=== PATIENT | male | born 1960 | race Caucasian/White ===

== ENCOUNTER 2022-11-25 07:48 | Emergency (ER) | payer MEDICARE, OTHER ==
[~2022-11-25] VITALS: Ht 175 cm; Wt 73.5 kg
[2022-11-25 07:48] VITALS: BP 148/88
--- NOTE | 2022-11-25 08:05 | ED Back Pain ---
General Chief Complaint: Back Problems Stated Complaint: BACK PAIN Nursing Triage Note: Pt presents to ER, via EMS, with complaints of back pain. Pt reports hx of chronic back pain and reports that he has been out of his oxycodone for approximately one month. Denies any new trauma/injury. Denies complaints of loss of bowel/bladder control and denies numbness/tingling to genital region. Source of Information: Patient Exam Limitations: No Limitations History of Present Illness Date Seen by Provider: Nov 25, 2022 Time Seen by Provider: 07:52 Initial Comments 62-year-old male with past medical history of chronic back pain, cyclical vomiting, and he states a few "psychiatric issues" that he currently is not needing medicines for coming in due to back pain from EMS. States the pain has been going on for years, has had numerous MRIs, and his primary care provider is in [place], [place]. He states he is staying in a camper, has been trying to move down here. He [place] to call his [place]- to [place] regular doctor. He ran out of oxycodone quite a while ago. The pain is mostly in his mid back, worse with movement, better with rest. Denies any weakness or numbness associated with it. Denies any new trauma associated with it. Otherwise denying any other acute complaints. Of note, he states that he was supposed to be on Latuda and that his primary care provider told him to "please start taking it again. He filled the prescription, took 1 pill, threw the rest out. Allergies and Home Medications Allergies Coded Allergies: No Known Drug Allergies (Unverified , 11/25/22) Patient Home Medication List Home Medication List Reviewed: Yes Review of Systems Constitutional: No fever EENTM: no symptoms reported Respiratory: no symptoms reported Cardiovascular: no symptoms reported Gastrointestinal: no symptoms reported Genitourinary: no symptoms reported Musculoskeletal: see HPI Skin: no symptoms reported Psychiatric/Neurological: No Symptoms Reported All Other Systems Reviewed Negative Unless Noted: Yes Past Wgoeflz-Fruyfu-Typowx Hx Patient Social History Tobacco Use?: No Use of E-Cig and/or Vaping dev: No Substance use?: Yes Substance type: Marijuana Alcohol Use?: Yes Pt feels they are or have been: No Immunizations Up To Date Influenza Vaccine Up-to-Date: No; Not Current Past Medical History Surgery/Hospitalization HX: Chronic Back Pain, thyroid disease, cyclic vomiting syndrome, Asthma Physical Exam Vital Signs Vital Signs - First Documented 11/25/22 07:48 Temp 36.8 Pulse 88 Resp 16 B/P (MAP) 148/88 (108) Pulse Ox 94 O2 Delivery Room Air Capillary Refill : Less Than 3 Seconds Height, Weight, BMI Height: '" Weight: lbs. oz. kg; 24.00 BMI Method: General Appearance: No Apparent Distress, WD/WN HEENT: PERRL/EOMI, Normal ENT Inspection, Pharynx Normal Neck: Full Range of Motion, Normal Inspection, Non Tender, Supple Cardiovascular: Regular Rate, Rhythm, No Edema, Normal Peripheral Pulses Respiratory: Chest Non Tender, Lungs Clear, Normal Breath Sounds, No Accessory Muscle Use, No Respiratory Distress Gastrointestinal: Normal Bowel Sounds, Non Tender, Soft; No Distended, No Guarding Back: Normal Inspection, No CVA Tenderness, No Vertebral Tenderness Extremity: Normal Capillary Refill, Normal Inspection, Normal Range of Motion, Non Tender, No Calf Tenderness, No Pedal Edema Neurologic/Psychiatric: Alert, Oriented x3, No Motor/Sensory Deficits, Normal Mood/Affect Skin: Normal Color, Warm/Dry Progress/Results/Core Measures Results/Orders My Orders Orders - HUYEN LOPEZ MD Droperidol Injection (Ed Only) (Droperid (11/25/22 08:15) Ketorolac Injection (Ketorolac Injection (11/25/22 08:15) Pelvis With Left Hip 2-3 View (11/25/22 08:08) Thoracic Spine 2 View Only (11/25/22 08:08) Tramadol Tablet (Ultram Tablet) (11/25/22 09:15) Medications Given in ED Current Medications Medications Dose Ordered Sig/Wilfredo Route Start Time Stop Time Status Last Admin Dose Admin Droperidol 1.25 mg ONCE ONCE IV 11/25/22 08:15 11/25/22 08:16 DC 11/25/22 08:11 1.25 MG Ketorolac Tromethamine 15 mg ONCE ONCE IVP 11/25/22 08:15 11/25/22 08:16 DC 11/25/22 08:11 15 MG Vital Signs/I&O 11/25/22 11/25/22 11/25/22 07:48 08:09 08:33 Temp 36.8 Pulse 88 81 82 Resp 16 18 16 B/P (MAP) 148/88 (108) 145/84 (104) 155/94 (114) Pulse Ox 94 97 98 O2 Delivery Room Air Room Air Room Air Blood Pressure Mean: 108 Progress Progress Note : Progress Note 62-year-old male with above history coming in due to back pain that is chronic. ABCs were intact and vitals were stable on presentation. Physical exam with no significant tenderness anywhere, and he is neurovascularly intact, ambulating without difficulty. X-ray of the pelvis and left hip as well as thoracic spine ordered and interpreted by me showing no fracture or dislocation. He is urinati ng without difficulty as well. He has no red flags otherwise. Given Toradol and tramadol for pain control. He has cyclical vomiting, was given a dose of droperidol to help prevent that from occurring, he states that occurs when he is in severe pain. I believe he is stable for discharge with outpatient follow-up. He was sent home with strict return precautions. Diagnostic Imaging Diagonstic Imaging: Xray (pelvis, left hip, thoracic spine) Comments [facility] [place], [place] NAME: TRAM GONZALEZ [facility] REC#: [id number] PT STATUS: REG ER : 1960 PHYSICIAN: HUYEN LOPEZ MD ADMIT DATE: 11/25/22/ER FS Signed Date of Exam:11/25/22 PELVIS WITH LEFT HIP 2-3 VIEW EXAMINATION: Left hip radiograph TECHNIQUE: AP view of the pelvis and AP and crosstable view of the left hip obtained. HISTORY: left hip pain COMPARISON: None available. FINDINGS: Alignment is normal. No fracture is seen. Joint spaces are normal. IMPRESSION: 1. No fracture. Dictated by: Dictated on workstation # [id number] Dict: 11/25/22830 Trans: 11/25/22833 [facility] [id number] Interpreted by: DANNY JASMINE DO Electronically signed by: DANNY JASMINE DO 11/25/22833 [facility] [place], [place] NAME: L[facility] REC#: [id number] PT STATUS: REG ER : 1960 PHYSICIAN: HUYEN LOPEZ MD ADMIT DATE: 11/25/22/ER FS Signed Date of Exam:11/25/22 THORACIC SPINE 2 VIEW ONLY EXAMINATION: Thoracic spine radiograph TECHNIQUE: AP and lateral views of the thoracic spine HISTORY: mid thoracic pain COMPARISON: None available. FINDINGS: Exaggerated kyphosis of the thoracic spine. No fracture is seen. Disc spaces are normal. Visualized lung jenkins are normal IMPRESSION: No apparent acute compression fracture. If there is persistent clinical concern MRI can be obtained. Dictated by: Dictated on workstation # [id number] Dict: 11/25/2234 Trans: 11/25/22835 [facility] [place] [id number] Interpreted by: DANNY JASMINE DO Electronically signed by: DANNY JASMINE DO 11/25/22835 Departure Impression Primary Impression: Back pain Qualified Codes: M54.6 - Pain in thoracic spine; G89.29 - Other chronic pain Disposition: HOME, SELF-CARE Condition: Stable Departure-Patient Inst. Decision time for Depature: 09:10 Patient Instructions: Upper Back Pain, Low Back Pain (DC) Add. Discharge Instructions: We do not see any significant damage on the x-rays. This is likely related to the same issues you have had in the past, unfortunately they do not appear to at least physically have gotten worse. We do recommend following back up with your regular doctor, and potentially getting a referral to a computer technical specialist if pain is not improving. We also recommend doing physical therapy for the back issues. Scripts Ibuprofen (Ibuprofen) 600 Mg Tablet 600 MG PO Q6H PRN for PAIN-MILD for 7 Days, #28 TAB Prov: HUYEN LOPEZ MD 11/25/22 Lidocaine (Lidocaine 5% Patch) 5 % Adh..patch 1 EACH TP Q12H PRN for Neuropathic pain MDD 2 for 14 Days, #28 PATCH 2 patches max for 12 hours, then 12 hours patch-free period. Prov: HUYEN LOPEZ MD 11/25/22 Cyclobenzaprine HCl (Cyclobenzaprine HCl) 10 Mg Tablet 10 MG PO BID PRN for SPASMS for 7 Days, #14 TAB Prov: HUYEN LOPEZ MD 11/25/22 HUYEN LOPEZ MD Nov 25, 2022 08:05
[2022-11-25] MEDS ORDERED: KETOROLAC INJ 15 MG/ML VIAL IVP ONE (08:15)
[2022-11-25] MEDS ORDERED: DroPERidol INJECTION 5 MG/2 ML (ED ONLY!) IV ONE (08:15)
--- NOTE | 2022-11-25 08:36 | Diagnostic Imaging Report ---
EXAMINATION: Left hip radiograph TECHNIQUE: AP view of the pelvis and AP and crosstable view of the left hip obtained. HISTORY: left hip pain COMPARISON: None available. FINDINGS: Alignment is normal. No fracture is seen. Joint spaces are normal. IMPRESSION: 1. No fracture. Dictated by: Dictated on workstation # [id number]
--- NOTE | 2022-11-25 08:37 | Diagnostic Imaging Report ---
EXAMINATION: Thoracic spine radiograph TECHNIQUE: AP and lateral views of the thoracic spine HISTORY: mid thoracic pain COMPARISON: None available. FINDINGS: Exaggerated kyphosis of the thoracic spine. No fracture is seen. Disc spaces are normal. Visualized lung jenkins are normal IMPRESSION: No apparent acute compression fracture. If there is persistent clinical concern MRI can be obtained. Dictated by: Dictated on workstation # [id number]
[2022-11-25] MEDS ORDERED: LIDO700A45 TP (09:11)
[2022-11-25] MEDS ORDERED: IBUP-1773 PO (09:11)
[2022-11-25] MEDS ORDERED: CYCL10TA25 PO (09:11)
== END 2022-11-25 09:15 | disposition home or self-care (01) ==
LOC: ER FS 07:50
DX: M54.6 Pain in thoracic spine (principal); G89.29 Other chronic pain; Z79.891 Long term (current) use of opiate analgesic
CPT/HCPCS: 72070; 73502